=== PATIENT | male | born 1985 | race Caucasian/White ===

== ENCOUNTER 2016-05-31 13:32 | Inpatient (IN) | payer OTHER ==
[2016-05-31] VITALS (10 sets, daily range): BP systolic 78–93; BP diastolic 30–61
[~2016-05-31] VITALS: Ht 175.3 cm; Wt 83.9 kg
[2016-05-31 13:58] LABS: BASOPHIL COUNT 0.1 K/uL (0-0.1); EOSINOPHIL (%) 1.2 % (0-5); EOSINOPHIL COUNT 0.2 K/uL (0-0.3); HEMATOCRIT 46.3 % (38.0-50.0); IMMATURE GRANULOCYTE COUNT 0.2 K/uL; INSTRUMENT ABS NEUTROPHIL CT 7.1 K/uL; LYMPHOCYTE COUNT 6.5 K/uL (1.0-2.8); MCH 31.3 PG (29.0-34.0); MCHC 34.3 G/DL (30.0-36.0); MCV 91.1 FL (86-99); MEAN PLAT.VOLUME 10.4 uM^3 (9.0-12.4); MONOCYTE (%) 8.5 % (3-12); MONOCYTE COUNT 1.3 K/uL (0-0.8); NEUTROPHIL (%) 46.5 % (45-76); NEUTROPHIL COUNT 7.1 K/uL (1.8-6.4); PLATELET COUNT 341 K/uL (156-360); RBC DIS.WIDTH-CV 12.8 % (11.8-14.6); RBC DIS.WIDTH-SD 43.2 % (39-53); RED BLOOD COUNT 5.08 M/uL (4.00-5.50); WHITE BLOOD COUNT 15.3 K/uL (4.1-10.2)
[2016-05-31 14:01] LABS: CHLORIDE 103 mEq/L (99-109); POTASSIUM 3.3 mEq/L (3.7-5.4); SODIUM 136 mEq/L (136-147)
[2016-05-31 14:03] LABS: GLUCOSE 229 mg/dL (70-99)
[2016-05-31 14:04] LABS: ANION GAP 15 MEQ/L (2-14)
[2016-05-31 14:05] LABS: TOTAL BILIRUBIN 0.3 mg/dL (0.0-1.0)
[2016-05-31 14:06] LABS: ALKALINE PHOSPHATASE 68 IU/L (3-129)
[2016-05-31 14:08] LABS: INTER. NORMALIZED RATIO 1.1; PTT 28.9 (25-32); UREA NITROGEN (BUN) 17 mg/dL (9-23)
[2016-05-31 14:10] LABS: CREATINE KINASE 201 IU/L (1-294); TOTAL CK 201 IU/L (1-294)
[2016-05-31 14:12] LABS: GFR ESTIMATE (CALCULATED) > 59 mL/min/
[2016-05-31 14:13] LABS: TROP-I INTERPRETATION NEGATIVE; TROPONIN-I < 0.01 ng/mL (0.0-0.30)
[2016-05-31 14:15] LABS: CK-MB 1.8 ng/mL (0.0-4.9)
[2016-05-31 14:29] LABS: BASE EXCESS -6.5 mEq/L (-3 to +3); BICARBONATE 25.8 mEq/L (22-26); CARBOXY HGB 8.4 % (0-5); PCO2 85 mm Hg (35-45); PO2 74 mm Hg (80-100)
[2016-05-31 14:36] LABS: COMMENTS - BLOOD GASES A+C+; DEVICE VENT; FI02 100 %; MODE ACVC; SITE LR
[2016-05-31 14:37] LABS: MECHANICAL RATE 18 resp/min; PEEP 6 CM/H20; TIDAL VOLUME 420 ML; TOTAL RESP RATE 18 resp/min; pH 7.09 (7.35-7.45)
[2016-05-31 14:55] LABS: AMPHETAMINE NEGATIVE (500 ng/mL); BARBITURATES NEGATIVE (200 ng/mL); BENZODIAZEPINES NEGATIVE (150 ng/mL); COCAINE NEGATIVE (150 ng/mL); INTERNAL CONTROLS VALID? YES; METHADONE NEGATIVE (200 ng/mL); METHAMPHETAMINE NEGATIVE (500 ng/mL); OPIATES (MORPHINE) PRESUMPTIVE POSITIVE (100 ng/mL); OXYCODONE NEGATIVE (100 ng/mL); PHENCYCLIDINE NEGATIVE (25 ng/mL); PROPOXYPHENE NEGATIVE (300 ng/mL); THC CANNABINOIDS NEGATIVE (50 ng/mL); TRICYCLIC ANTIDEPRESSANTS NEGATIVE (300 ng/mL)
[2016-05-31 14:56] LABS: ADD MEDTOX COMMENT Y
[2016-05-31 15:01] LABS: SERUM ETHYL ALCOHOL < 10 mg/dL
[2016-05-31 15:34] LABS: BASE EXCESS -4.8 mEq/L (-3 to +3); CARBOXY HGB 8.7 % (0-5); METHEMOGLOBIN 1.4 % (0-1.5); PCO2 67 mm Hg (35-45); PO2 133 mm Hg (80-100)
[2016-05-31 15:35] LABS: COMMENTS - BLOOD GASES A+C+; DEVICE VENT; FI02 100 %; MECHANICAL RATE 20 resp/min; MODE A/C; PEEP 6 CM/H20; SITE LR; TIDAL VOLUME 460 ML; TOTAL RESP RATE 20 resp/min; pH 7.18 (7.35-7.45)
[2016-05-31 18:10] LABS: METH RESISTANT S AUREUS PCR NEGATIVE (NEGATIVE)
[2016-05-31 18:11] LABS: PROBE CHECK PASS; SPECIMEN PROCESSING CONTROL PASS
[2016-06-01] VITALS (11 sets, daily range): BP systolic 79–121; BP diastolic 40–66
[2016-06-01 00:36] LABS: BASE EXCESS 1.5 mEq/L (-3 to +3); BICARBONATE 28.5 mEq/L (22-26); CARBOXY HGB 2.6 % (0-5); METHEMOGLOBIN 1.3 % (0-1.5)
[2016-06-01 00:37] LABS: COMMENTS - BLOOD GASES C+A+; DEVICE VENTILATOR; FI02 70 %; INSPIRATION TIME 0.75 seconds; MECHANICAL RATE 16 resp/min; MODE AC; PCO2 54 mm Hg (35-45); PEEP 5 CM/H20; PO2 58 mm Hg (80-100); SITE RR; TIDAL VOLUME 380 ML; TOTAL RESP RATE 19 resp/min; pH 7.33 (7.35-7.45)
[2016-06-01 00:51] LABS: ADD MIUA? YES; BILIRUBIN NEGATIVE; BLOOD SMALL; COLOR YELLOW ((YELLOW)); GLUCOSE (STRIP) NEGATIVE; KETONES 20; LEUKOCYTES NEGATIVE; NITRITE NEGATIVE; PROTEIN (STRIP) NEGATIVE; SPECIFIC GRAVITY 1.018 (1.000-1.030); UROBILINOGEN 0.2 MG/DL (0.2-1.0)
[2016-06-01 01:31] LABS: CHLORIDE 104 mEq/L (99-109); POTASSIUM 3.5 mEq/L (3.7-5.4); SODIUM 138 mEq/L (136-147)
[2016-06-01 01:34] LABS: INTER. NORMALIZED RATIO 1.1; PROTHROMBIN TIME 11.2 (9.2-11.2); PTT 31.1 (25-32)
[2016-06-01 01:35] LABS: ANION GAP 16 MEQ/L (2-14)
[2016-06-01 01:37] LABS: ALKALINE PHOSPHATASE 51 IU/L (3-129); GFR ESTIMATE (CALCULATED) > 59 mL/min/
[2016-06-01 01:38] LABS: UREA NITROGEN (BUN) 15 mg/dL (9-23)
[2016-06-01 01:40] LABS: GLUCOSE 96 mg/dL (70-99); TOTAL BILIRUBIN 0.8 mg/dL (0.0-1.0)
[2016-06-01 01:41] LABS: AMORPHOUS URATES CRYSTALS 3+; CRYSTALS PRESENT; WHITE BLOOD CELLS 0-5 /HPF (0-5)
[2016-06-01 01:42] LABS: BACTERIA 2+ /HPF; CASTS NONE SEEN /LPF; EPITHELIAL CELLS RARE /HPF; MUCUS NONE SEEN /LPF; UCUL ADDED? NO
[2016-06-01 01:46] LABS: HEMATOCRIT 42.4 % (38.0-50.0); MCH 31.3 PG (29.0-34.0); MCV 94.9 FL (86-99); MEAN PLAT.VOLUME 10.1 uM^3 (9.0-12.4); PLATELET COUNT 251 K/uL (156-360); RBC DIS.WIDTH-CV 13.2 % (11.8-14.6); RBC DIS.WIDTH-SD 46.1 % (39-53); RED BLOOD COUNT 4.47 M/uL (4.00-5.50)
[2016-06-01 01:47] LABS: EOSINOPHIL (%) 0.7 % (0-5); EOSINOPHIL COUNT 0.2 K/uL (0-0.3); IMMATURE GRANULOCYTE (%) 0.3 % (0.0-0.7); IMMATURE GRANULOCYTE COUNT 0.1 K/uL; INSTRUMENT ABS NEUTROPHIL CT 18.1 K/uL; LYMPHOCYTE COUNT 2.9 K/uL (1.0-2.8); MONOCYTE COUNT 1.4 K/uL (0-0.8); NEUTROPHIL (%) 80.3 % (45-76); NEUTROPHIL COUNT 18.1 K/uL (1.8-6.4)
[2016-06-01 01:48] LABS: WHITE BLOOD COUNT 22.6 K/uL (4.1-10.2)
[2016-06-01 05:03] LABS: BASE EXCESS 2.1 mEq/L (-3 to +3); CARBOXY HGB 1.9 % (0-5); COMMENTS - BLOOD GASES C+A+; DEVICE VENTILATOR; FI02 100 %; METHEMOGLOBIN 1.4 % (0-1.5); MODE AC; PCO2 55 mm Hg (35-45); PO2 55 mm Hg (80-100); SITE RR; pH 7.33 (7.35-7.45)
[2016-06-01 05:04] LABS: INSPIRATION TIME 1.1 seconds; MECHANICAL RATE 20 resp/min; PEEP 12 CM/H20; TIDAL VOLUME 550 ML; TOTAL RESP RATE 22 resp/min
[2016-06-01 12:33] LABS: HBSG INDEX 0.83
[2016-06-01 12:35] LABS: ANTI-HEPATITIS A VIRUS (IGM) Nonreactive; ANTI-HEPATITIS B CORE (IGM) Nonreactive; HAV INDEX 0.23
[2016-06-01 12:50] LABS: HPCA INDEX 8.79
== END 2016-06-01 08:10 | disposition short-term general hospital (02) | DRG 987 ==
LOC: EDBD 13:32 → EME 13:32 → 4WEST 15:31 → EDOF 15:31 → 4WEST 16:14
PROVIDERS: Emergency Medicine; Internal Medicine Critical Care Medicine; Surgery Surgical Critical Care
PROC: 0B9C8ZX Drainage of Right Upper Lung Lobe, Via Natural or Artificial Opening Endoscopic, Diagnostic (ICD-10-PCS; principal; 2016-05-31)
PROC: 0B9D8ZX Drainage of Right Middle Lung Lobe, Via Natural or Artificial Opening Endoscopic, Diagnostic (ICD-10-PCS; principal; 2016-05-31)
PROC: 0B9J8ZX Drainage of Left Lower Lung Lobe, Via Natural or Artificial Opening Endoscopic, Diagnostic (ICD-10-PCS; principal; 2016-05-31)
PROC: 05H533Z Insertion of Infusion Device into Right Subclavian Vein, Percutaneous Approach (ICD-10-PCS; principal; 2016-05-31)
PROC: 0B9F8ZX Drainage of Right Lower Lung Lobe, Via Natural or Artificial Opening Endoscopic, Diagnostic (ICD-10-PCS; principal; 2016-05-31)
PROC: 5A1935Z Respiratory Ventilation, Less than 24 Consecutive Hours (ICD-10-PCS; principal; 2016-05-31)
PROC: 0BH17EZ Insertion of Endotracheal Airway into Trachea, Via Natural or Artificial Opening (ICD-10-PCS; principal; 2016-05-31)
DX: T40.1X4A Poisoning by heroin, undetermined, initial encounter (principal); J96.00 Acute respiratory failure, unspecified whether with hypoxia or hypercapnia; J69.0 Pneumonitis due to inhalation of food and vomit; E87.2 Acidosis; B37.0 Candidal stomatitis; R04.2 Hemoptysis; R04.0 Epistaxis; R04.89 Hemorrhage from other sites in respiratory passages; R45.1 Restlessness and agitation
CPT/HCPCS: 36600; 71010; 80048 91; 80053; 80074; 81003; 82550; 82553; 82803; 83605; 83880; 84484; 84999; 85025; 85025 91; 85610; 85730; 87040; 87070; 87086; 87205; 87641; 93005; 94002; 99281; 99285; G0480; J2250; J2543; J2704; J2930; J3480; J7030; J7050; J7120

== ENCOUNTER 2017-10-07 18:01 | Emergency (ER) | payer OTHER ==
[~2017-10-07] VITALS: Ht 167.6 cm; Wt 76.8 kg
[2017-10-07] MEDS ORDERED: NALTREXONE HCL50 MG PO (18:21)
[2017-10-07] MEDS ORDERED: LAMICTAL150 M1 PO (18:21)
[2017-10-07] MEDS ORDERED: EFFEXOR50 MG PO (18:21)
[2017-10-07 18:55] VITALS: BP 127/89
== END 2017-10-07 18:56 | disposition home or self-care (01) ==
LOC: EME 18:01
DX: Z76.0 Encounter for issue of repeat prescription (principal); F32.9 Major depressive disorder, single episode, unspecified; F17.200 Nicotine dependence, unspecified, uncomplicated
CPT/HCPCS: 99281; 99283